=== PATIENT | female | born 1945 | race Caucasian/White ===

== ENCOUNTER 2019-02-08 19:55 | Emergency (ER) | payer MEDICARE, OTHER, SELFPAY ==
[2019-02-08 19:58] VITALS: BP 121/72; PULSE 82; RESP 17; TEMP 36.9; O2SAT 95; BMI 26.8
--- NOTE | 2019-02-08 20:39 | ED.VIS.GEN ---
History of Present Illness Chief Complaint: General Illness Detail of Chief Complaint: Nausea and loss of appetite Informant: Patient, Family Onset: Days - Onset FridayJanuary 29. Context: Sudden Onset Timing: Continuous Quality: Loss of appetite, nausea and vomiting Location: GI Current Severity: Mild Maximum Severity: Moderate Worsened by: Worse after taking promethazine tablet Relieved by: Nothing Associated Symptoms: Dry mouth, thirst, malaise, subjective fever and not self Narrative: Patient is 74-year-old woman who presents because of illness that started FridayFebruary 03. She states she had one episode of emesis per day. She had soft mushy stool today. There is no blood or mucus in the stool. There was no blood or coffee-ground appearance to the emesis. She does complain of thirst and dry mouth. She complains of subjective fever. Denies headache, visual, ocular auditory symptoms. She denies respiratory symptoms. She denies dysuria, frequency, urgency or hematuria. [facility] and had he rapid flu test that was negative. She was discharged with promethazine tablets. She states she has not been able to take the promethazine tablets. She vomits after taking them. She denies rash. Prior similar symptoms: Yes Recent Illness/Hospitalization: Yes - Past Medical History (1) No significant past medical history Status: Acute Past Medical History - Allergies and Home Meds Allergies/Adverse Reactions: Allergies Penicillins Allergy (Verified 02/08/19 19:57) Anaphylaxis Primary Care Physician: Cuauhtemoc Viramontes MD [Primary Care Provider] - 3-5 Days Prior records reviewed: Yes Surgical History: noncontributory Lives: Spouse/ Significant Other Smoking Status: Never smoker Alcohol: Rare Drugs: None Review of Systems General: Reports: Fever, Malaise, Subjective. Denies: Chills, Sweats Eyes: Denies: Visual changes - bilaterally, Blurred Vision - bilaterally, Diplopia ENT: Denies: Bilateral ear pain, Rhinorrhea, Sore throat Cardiovascular: Denies: Chest pain, Palpitations Respiratory: Denies: Dyspnea, Cough, Dyspnea on exertion Gastrointestinal: Reports: Nausea. Denies: Abdominal pain, Vomiting, Diarrhea, Melena, Hematochezia Genitourinary: Denies: Dysuria, Hematuria, Frequency Musculoskeletal: Denies: Myalgias, Arthralgias, Neck pain, Back pain, Swelling, Extremity Pain Skin: Denies: Rash, Wounds Neurological: Reports: Weakness. Denies: Headache, Numbness Hematologic: Denies: Easy bruising, Easy bleeding Allergy: Denies: Uticaria, Swelling of the mouth Physical Exam Vital Signs/Narrative: Vital Signs Temp Pulse Resp BP Pulse Ox 02/08/19 19:58 98.5 F 82 17 121/72 H 95 Inital Vital Signs reviewed: Yes General: Well nourished, Well developed, - - Patient appears ill Eyes: Perrl. Negative for: Pale conjunctiva, Scleral icterus ENT: No rhinorrhea, TM's clear, Dry mucous membranes Neck: Supple, Nontender, No lymphadenopathy, No JVD Cardiovascular: Regular rate, Regular rhythm, No murmurs Respiratory: No distress, CTA bilaterally, Chest nontender Abdomen: Soft, Nontender, Nondistended, Normal bowel sounds, No masses Back: Nontender, Normal Inspection. Negative for: CVA tenderness Extremities: Nontender, No edema Skin: Normal color, No rash, No Trauma. Negative for: Cyanosis, Diaphoresis, Jaundice Neurological: Alert, Oriented x3, Cranial nerves II-XII grossly intact, Normal Strength, Normal Sensation Psychological: Normal affect Diagnostic/Tx/Re-eval Laboratory Results 02/08/19 02/08/19 02/08/19 21:04 21:04 21:06 WBC 12.8 H RBC 4.26 Hgb 12.8 Hct 35.5 L MCV 83.3 MCH 30.0 MCHC 36.1 H RDW Std Deviation 38.3 RDW Coeff of David 12.5 Plt Count 214 MPV 9.4 Immature Gran % (Auto) 0.700 Neut % (Auto) 84.8 H Lymph % (Auto) 4.8 L [place] % (Auto) 9.0 Eos % (Auto) 0.5 Baso % (Auto) 0.2 Absolute Neuts (auto) 10.9 H Absolute Lymphs (auto) 0.61 L Nucleated RBC % 0 Sodium 132 L Potassium 2.6 L* Chloride 93 L Carbon Dioxide 26.0 Anion Gap 13 BUN 32 H Creatinine 1.40 H Estim Creat Clear Calc 29.98 Est GFR (MDRD) Af Amer 47 L Est GFR (MDRD) Non-Af 39 L BUN/Creatinine Ratio 22.9 H Glucose 122 H Calcium 8.9 Total Bilirubin 0.70 AST 26 ALT 34 Alkaline Phosphatase 120 H Total Protein 6.6 Albumin 2.7 L Globulin 3.9 Albumin/Globulin Ratio 0.7 L Urine Color Yellow Urine Clarity Sl. Cloudy Urine pH 6.0 Ur Specific [place] 1.015 Urine Protein 100 H Urine Glucose (UA) Normal Urine Ketones 15 H Urine Occult Blood 50 H Urine Nitrite Negative Urine Bilirubin Negative Urine Urobilinogen Normal Ur Leukocyte Esterase 500 H Urine RBC 0-5 SEEN Urine WBC >100 SEEN Ur Squamous Epith Cells 0-5 SEEN Urine Bacteria 2+ Urine Mucus 0 SEEN White count is elevated with no bandemia. Urine is consistent with infection. Since she had a UTI approximately 1 month ago she is a complex UTI. Culture was sent. She received IV antibiotics. Comprehensive metabolic panel is remarkable for a potassium of 2.6. She states she has had problems with low potassium in the past. She received 40 mEq of potassium chloride solution and will receive a second dose 1 hour after first. Patient states she does feel better after the liter of saline. - Medical Decision Making With general symptoms of malaise. Since she is elderly will obtain urine to assess for UTI. CBC to assess white count and H&H. Because she has had poor p.o. intake for 5 days basic metabolic panel was obtained to assess electrolytes and renal function. She received 1 L of normal saline wide open and Zofran for her nausea. Patient tolerated p.o. challenge. Will discharge after second dose of potassium. A prescription for ciprofloxacin and potassium was given to patient. ED Disposition - Plan for ED Patient: Disposition: Home or Assisted Living Diagnosis: Complicated urinary tract infection, Sepsis, Mild dehydration, Hypokalemia Instructions: Hypokalemia, Bladder Infection (Cystitis), Female (Child) Prescriptions: Ciprofloxacin [Cipro] 500 mg PO BID #14 tab Prescription Printed Potassium Cloride Effervescent [Potassium Chl 25 Meq Eff (For Liquid)] 25 meq PO BID #30 tablet.eff Prescription Printed Referrals: Cuauhtemoc Viramontes MD [Primary Care Provider] - 3-5 Days
[2019-02-08] MEDS: 0.9% Normal Saline 1,000 ML 1000 ML IV (20:58)
[2019-02-08] MEDS: Ondansetron 4 MG/2 ML Vial IV (20:59)
[2019-02-08 21:12] LABS: Mucous, Urine 0 SEEN /hpf (<or=2+)
[2019-02-08 21:29] LABS: Absolute Lymphocyte Count 0.61 X10^3/uL (0.83-4.51); Absolute Neutrophil Count 10.9 X10^3/uL (2.0-7.7); Basophil# 0.03 X10^3/uL; Basophil% 0.2 % (0-1); Eosinophil# 0.06 X10^3/uL; Eosinophils% 0.5 % (0-5); Hematocrit 35.5 % (37-47); Hemoglobin 12.8 g/dL (12.0-15.0); Lymphocyte # 0.61 X10^3/ul (4.0); Lymphocyte % 4.8 % (19-41); Mean Corp Hgb Conc 36.1 g/dL (32-36); Mean Corpuscular Volume 83.3 fL (81-99); Mean Platelet Vol. 9.4 fl (6.2-12.0); Monocyte# 1.16 X10^3/uL; NRBC Flagged by Analyzer 0 % (0-5); Neutrophil # 10.87 X10^3/uL (2.7-7.7); Neutrophil % 84.8 % (47-70); Platelet Count 214 K/mm3 (150-450); RBC Distribution Width CV 12.5 % (11.6-14.6); RBC Distribution Width SD 38.3 fl (35.1-43.9); Red Blood Count 4.26 M/mm3 (4.2-5.4); White Blood Count 12.8 K/mm3 (4.4-11.0)
[2019-02-08 21:35] LABS: Color, Urine Yellow (Yellow); Glucose, Dipstick Normal (Normal); Ketone-Dipstick 15 mg/dl (Negative); Leukocyte Esterase-Dipstick 500 /ul (Negative); Nitrite-Dipstick Negative (Negative); Occult Blood-Urine 50 /ul (Negative); Protein-Dipstick 100 mg/dl (Negative); Specific Gravity, Urine 1.015 (1.002-1.030); Urine Bilirubin Dipstick Negative (Negative); Urine Clarity Sl. Cloudy (Clear); Urine Urobilinogen Normal (Normal)
[2019-02-08 21:50] LABS: Bacteria 2+ /hpf (None Seen); Red Blood Cells-Urine 0-5 SEEN /hpf (0-5); Squamous Epithelial Cells - UA 0-5 SEEN /hpf (5-10); White Blood Cells >100 SEEN /hpf (0-5)
[2019-02-08 22:21] VITALS: BP 123/66; PULSE 66; RESP 22; O2SAT 93
[2019-02-08 22:22] LABS: ALB/GLOB Ratio 0.7 RATIO (0.9-2.4); AST(SGOT) 26 U/L (15-37); Alanine Aminotransfer ALT/SGPT 34 U/L (13-56); Albumin, Serum 2.7 g/dL (3.2-5.0); Alkaline Phosphatase 120 U/L (45-117); Anion Gap 13 (5-15); BUN 32 mg/dL (7-18); BUN/Creat Ratio 22.9 RATIO (10-20); Calcium,Total 8.9 mg/dL (8.5-10.1); Chloride 93 mmol/L (98-107); EST Glomerular Filtration Rate 39 mL/min (>60); Est Glom Filt Rate - Afr Amer 47 mL/min (>60); Estimated Creatinine Clearance 29.98 ml/min; Globulin 3.9 g/dL (2.2-4.2); Glucose 122 mg/dL (74-106); Potassium 2.6 mmol/L (3.5-5.1); Protein, Total 6.6 g/dL (6.4-8.2); Sodium Level 132 mmol/L (136-145)
[2019-02-08] MEDS: Ciprofloxacin 400 MG/200 ML BAG 200 MG IV (22:33)
[2019-02-08 23:46] VITALS: BP 137/83; PULSE 76; RESP 17; O2SAT 97
== END 2019-02-09 00:10 | disposition home or self-care (01) ==
PROVIDERS: Emergency Provider Emergency Medicine; Family Provider Family Medicine; PCP Family Medicine
DX: N39.0 Urinary tract infection, site not specified (principal); A41.9 Sepsis, unspecified organism; E86.0 Dehydration; E87.6 Hypokalemia
CPT/HCPCS: 80053; 81001; 85025; 87077; 87086; 87088; 87186; 96361; 96365; 96375; 99284; J7050; A4216; J0744; J2405

== ENCOUNTER 2020-08-19 15:18 | Emergency (ER) | payer MEDICARE, OTHER, SELFPAY ==
[2020-08-19 15:19] VITALS: BP 163/87; PULSE 79; RESP 14; TEMP 36.4; O2SAT 99; BMI 30.2
--- NOTE | 2020-08-19 15:30 | EX.ED.DYSGE1 ---
HPI History of Present Illness Chief Complaint: Complaint Informant: patient and spouse/S.O. Narrative Narrative: 75-year-old female states that she believes she has a UTI. 4 days ago she began to feel nauseous and not herself. She states that she does not typically get urinary symptoms when she gets a UTI. So when she started to feel not herself she started taking Bactrim. This is now day 4 of Bactrim. She states that she has been trying to drink plenty of fluids but the nausea is limited solid intake. She states today she feels shaky and has dry mouth. She notes continued nausea. No fevers. 2018 she was seen in the emergency department and had urine culture that showed E. coli that was pansensitive. [facility] Medical History (Updated 08/19/20 @ 18:[address] Cesario Molina DO) History of UTI Home Medications hydrochlorothiazide 1 tab PO DAILY 02/08/19 [History Last Taken Unknown] ondansetron 4 mg PO Q6H PRN PRN #15 tab 08/19/20 [Rx Last Taken Unknown] potassium chloride 20 meq PO BID #6 tab 08/19/20 [Rx Last Taken Unknown] Allergy/AdvReac Type Severity Reaction Status Date / Time Penicillins Allergy Anaphylaxis Verified 08/19/20 15:19 Social History (Updated 08/19/20 @ 15:[address] Cesario Molina DO) Smoking Status: Never smoker substance use type: does not use ROS ROS ED Constitutional Constitutional ED: Reports other Details: Patient feels shaky and weak ; Denies chills or weight loss Eyes Eyes: Denies change in vision or diplopia ENT ENT ED: Denies ear pain, rhinorrhea or sore throat Cardiovascular Cardiovascular: Denies chest pain, orthopnea, palpitations or racing heartbeat Respiratory/Chest Respiratory/Chest: Denies cough, dyspnea or orthopnea Gastrointestinal Gastrointestinal: Reports nausea; Denies abdominal pain, diarrhea or vomiting Genitourinary Genitourinary ED: Denies dysuria, hematuria or urinary frequency Musculoskeletal Musculoskeletal: Denies arthralgias or myalgias Integumentary Denies abscess or rash Neurologic Neurologic: Denies headache(s) or weakness Psychiatric Psychiatric: Denies anxiety, depression, suicidal ideation or suicidal thoughts Endocrine Endocrinology: Denies polydipsia, polyphagia or polyuria Allergic/Immunologic Allergic/Immunologic ED: Denies mouth swelling, tongue swelling or urticaria EXAM Physical Exam Const Vital Signs: 08/19/20 15:19 08/19/20 15:42 08/19/20 16:07 Temperature 97.5 F L Temperature Source Temporal Pulse Rate 79 Pulse Rate [Lying] 66 Pulse Rate [Sitting] 64 Pulse Rate [Standing] 70 Respiratory Rate 14 Respiratory Effort Normal Non-Labored Respiratory Pattern Normal Blood Pressure 163/87 H Blood Pressure [Lying] 144/72 H Blood Pressure [Sitting] 145/79 H Blood Pressure [Standing] 143/75 H Blood Pressure Mean 112 Blood Pressure Mean [Lying] 96 Blood Pressure Mean [Sitting] 101 Blood Pressure Mean [Standing] 97 Pulse Ox 99 Oxygen Delivery Method Room Air 08/19/20 17:46 Temperature Temperature Source Pulse Rate 62 Pulse Rate [Lying] Pulse Rate [Sitting] Pulse Rate [Standing] Respiratory Rate 16 Respiratory Effort Respiratory Pattern Blood Pressure 134/73 H Blood Pressure [Lying] Blood Pressure [Sitting] Blood Pressure [Standing] Blood Pressure Mean 93 Blood Pressure Mean [Lying] Blood Pressure Mean [Sitting] Blood Pressure Mean [Standing] Pulse Ox 95 Oxygen Delivery Method Room Air Positive well nourished and well developed General Appearance ED: well developed HEENT Reports normocephalic, head/scalp atraumatic and moist mucous membranes Eyes PERRL and EOMs intact bilaterally Neck no lymphadenopathy, supple and no JVD Resp normal respiratory effort and clear to auscultation bilaterally Cardio regular rate, regular rhythm and no murmurs GI normal to inspection, nondistended, normoactive bowel sounds and non-tender Palpation: soft Back/Spine no CVA tenderness and normal ROM Extremity normal to inspection General Extremety ED: Negative for edema General Extremity: Negative for edema Neuro oriented x3 and CN's II-XII intact bilaterally Neuro Narrative: She appears to have an intention tremor Sensorium / Orientation: alert Motor Exam: strength 5/5 throughout Psych mental status grossly normal Mood & Affect: Negative for depressed or tearful Skin no rashes or lesions noted and no wounds MDM MDM MDM Narrative Medical decision making narrative: CBC is normal. CMP shows a potassium of 2.9. Lactic acid at 2. Urinalysis is negative for nitrates 0 red blood cells 0-5 white blood cells and rare bacteria. It would appear that the antibiotic is working for her. I suspect a lot of her symptoms are due to the hypokalemia. Her EKG does not show any significant change from prior. We will replace the potassium over the next couple days. I would have her continue her antibiotics for 3 more days. Return if worsening or concerns at the time of discharge the patient no longer has her tremor. She is feeling much better. Lab Data Attestation: I reviewed the patient's lab results. Labs: Laboratory Results - last 24 hr 08/19/20 08/19/20 08/19/20 15:44 15:44 15:44 WBC 7.8 RBC 5.05 Hgb 15.0 Hct 44.4 MCV 87.9 MCH 29.7 MCHC 33.8 RDW Std Deviation 39.8 RDW Coeff of David 12.4 Plt Count 267 MPV 8.5 Immature Gran % (Auto) 0.400 Neut % (Auto) 75.6 H Lymph % (Auto) 15.1 L [place] % (Auto) 8.3 Eos % (Auto) 0.1 Baso % (Auto) 0.5 Absolute Neuts (auto) 5.9 Absolute Lymphs (auto) 1.18 Nucleated RBC % 0 Sodium 134 L Potassium 2.9 L Chloride 97 L Carbon Dioxide 28.0 Anion Gap 9 BUN 14 Creatinine 1.02 Estim Creat Clear Calc 38.81 Est GFR (MDRD) Af Amer 68 Est GFR (MDRD) Non-Af 56 L BUN/Creatinine Ratio 13.7 Glucose 110 H Lactic Acid 2.0 Calcium 9.8 Total Bilirubin 0.70 AST 15 ALT 19 Alkaline Phosphatase 106 Total Protein 7.3 Albumin 3.9 Globulin 3.4 Albumin/Globulin Ratio 1.1 Lipase 94 Urine Color Urine Clarity Urine pH Ur Specific [place] Urine Protein Urine Glucose (UA) Urine Ketones Urine Occult Blood Urine Nitrite Urine Bilirubin Urine Urobilinogen Ur Leukocyte Esterase Urine RBC Urine WBC Ur Squamous Epith Cells Urine Bacteria Urine Mucus 08/19/20 16:00 WBC RBC Hgb Hct MCV MCH MCHC RDW Std Deviation RDW Coeff of David Plt Count MPV Immature Gran % (Auto) Neut % (Auto) Lymph % (Auto) [place] % (Auto) Eos % (Auto) Baso % (Auto) Absolute Neuts (auto) Absolute Lymphs (auto) Nucleated RBC % Sodium Potassium Chloride Carbon Dioxide Anion Gap BUN Creatinine Estim Creat Clear Calc Est GFR (MDRD) Af Amer Est GFR (MDRD) Non-Af BUN/Creatinine Ratio Glucose Lactic Acid Calcium Total Bilirubin AST ALT Alkaline Phosphatase Total Protein Albumin Globulin Albumin/Globulin Ratio Lipase Urine Color Yellow Urine Clarity Clear Urine pH 7.0 Ur Specific [place] 1.010 Urine Protein Negative Urine Glucose (UA) Normal Urine Ketones Negative Urine Occult Blood Negative Urine Nitrite Negative Urine Bilirubin Negative Urine Urobilinogen Normal Ur Leukocyte Esterase 25 H Urine RBC 0 SEEN Urine WBC 0-5 SEEN Ur Squamous Epith Cells 0-5 SEEN Urine Bacteria RARE Urine Mucus 0 SEEN EKG Initial EKG: Attestation: I personally reviewed and interpreted this EKG as follows: Comments: EKG demonstrates a normal sinus rhythm with a rate of 65 bpm. Prior EKG tracings: available for review Prior: Unchanged Discharge Plan Triage Chief Complaint: Complaint ED Provider: Cesario Molina Dx/Rx/DC Orders Clinical Impression: Acute hypokalemia, Nausea Instructions: ED Hypokalemia Prescriptions: New potassium chloride 20 mEq tablet extended release 20 meq PO BID Qty: 6 RF: 0 ondansetron [ondansetron] 4 MG tablet 4 mg PO Q6H PRN PRN (Reason: Nausea) Qty: 15 RF: 0 No Action hydrochlorothiazide 25 MG tablet 1 tab PO DAILY RF: 0 Primary Care Provider: Cuauhtemoc Viramontes Referrals: Cuauhtemoc Viramontes MD [Primary Care Provider] - As Needed Disposition Disposition: Home, Self Care
[2020-08-19] MEDS: 0.9% Normal Saline 1,000 ML 1000 ML IV (15:53)
[2020-08-19] MEDS: Ondansetron 4 MG/2 ML Vial IV (15:53)
[2020-08-19 16:00] LABS: Absolute Lymphocyte Count 1.18 X10^3/uL (0.83-4.51); Absolute Neutrophil Count 5.9 X10^3/uL (2.0-7.7); Basophil# 0.04 X10^3/uL; Basophil% 0.5 % (0-1); Eosinophil# 0.01 X10^3/uL; Eosinophils% 0.1 % (0-5); Hematocrit 44.4 % (37-47); Lymphocyte # 1.18 X10^3/ul (0.83-4.51); Lymphocyte % 15.1 % (19-41); Mean Corp Hgb Conc 33.8 g/dL (32-36); Mean Corpuscular Hgb 29.7 pg (27.0-32.0); Mean Corpuscular Volume 87.9 fL (81-99); Mean Platelet Vol. 8.5 fl (6.2-12.0); Monocyte# 0.65 X10^3/uL; Monocyte% 8.3 % (0-10); NRBC Flagged by Analyzer 0 % (0-5); Neutrophil # 5.89 X10^3/uL (2.7-7.7); Neutrophil % 75.6 % (47-70); Platelet Count 267 K/mm3 (150-450); RBC Distribution Width CV 12.4 % (11.6-14.6); RBC Distribution Width SD 39.8 fl (35.1-43.9); Red Blood Count 5.05 M/mm3 (4.2-5.4); White Blood Count 7.8 K/mm3 (4.4-11.0)
[2020-08-19 16:05] LABS: Mucous, Urine 0 SEEN /hpf (<or=2+); Red Blood Cells-Urine 0 SEEN /hpf (0-5)
[2020-08-19 16:07] VITALS: BP 143/75; BP 144/72; BP 145/79; PULSE 64; PULSE 66; PULSE 70
[2020-08-19 16:07] LABS: Color, Urine Yellow (Yellow); Glucose, Dipstick Normal (Normal); Ketone-Dipstick Negative (Negative); Leukocyte Esterase-Dipstick 25 /ul (Negative); Nitrite-Dipstick Negative (Negative); Occult Blood-Urine Negative /ul (Negative); Protein-Dipstick Negative (Negative); Urine Bilirubin Dipstick Negative (Negative); Urine Clarity Clear (Clear); Urine Urobilinogen Normal (Normal)
[2020-08-19 16:13] LABS: ALB/GLOB Ratio 1.1 RATIO (0.9-2.4); AST(SGOT) 15 U/L (15-37); Alanine Aminotransfer ALT/SGPT 19 U/L (13-56); Albumin, Serum 3.9 g/dL (3.2-5.0); Alkaline Phosphatase 106 U/L (45-117); Anion Gap 9 (5-15); BUN 14 mg/dL (7-18); BUN/Creat Ratio 13.7 RATIO (10-20); Calcium,Total 9.8 mg/dL (8.5-10.1); Chloride 97 mmol/L (98-107); Creatinine, Serum 1.02 mg/dL (0.55-1.02); EST Glomerular Filtration Rate 56 mL/min (>60); Est Glom Filt Rate - Afr Amer 68 mL/min (>60); Estimated Creatinine Clearance 38.81 ml/min; Globulin 3.4 g/dL (2.2-4.2); Glucose 110 mg/dL (74-106); Lipase 94 U/L (73-393); Potassium 2.9 mmol/L (3.5-5.1); Protein, Total 7.3 g/dL (6.4-8.2); Sodium Level 134 mmol/L (136-145)
[2020-08-19 16:21] LABS: Squamous Epithelial Cells - UA 0-5 SEEN /hpf (5-10); White Blood Cells 0-5 SEEN /hpf (0-5)
[2020-08-19 16:22] LABS: Bacteria RARE /hpf (None Seen)
[2020-08-19] MEDS: Potassium Chloride Oral Tablet 20 MEQ 40 MEQ PO (16:47)
--- NOTE | 2020-08-19 17:42 | EKG12_ITS ---
Test Reason : Blood Pressure : / mmHG Vent. Rate : 065 BPM Atrial Rate : 065 BPM P-R Int : 182 ms QRS Dur : 088 ms QT Int : 434 ms P-R-T Axes : 031 -22 -41 degrees QTc Int : 451 ms Normal sinus rhythm ST & T wave abnormality, consider anterolateral ischemia Abnormal ECG Confirmed by ROGER SIMMONS, EUSEBIA ([id number]), associate entertainment editor JON RON ([id number]) on 08/23/2020 9:12:44 AM Referred By: CIARA Confirmed By:EUSEBIA DURAN MD
[2020-08-19 17:46] VITALS: BP 134/73; PULSE 62; RESP 16; O2SAT 95
[2020-08-19 19:49] LABS: Reflex Lactate? Y
== END 2020-08-19 18:17 | disposition home or self-care (01) ==
PROVIDERS: Emergency Provider Emergency Medicine; PCP Family Medicine
DX: E87.6 Hypokalemia (principal); R11.0 Nausea; Z87.440 Personal history of urinary (tract) infections; Z79.899 Other long term (current) drug therapy
CPT/HCPCS: 80053; 81001; 83605; 83690; 85025; 93005; 96374; 99284; J7030; A4216; J2405

== ENCOUNTER 2020-08-29 23:14 | Emergency (ER) | payer MEDICARE, OTHER, SELFPAY ==
[2020-08-29 23:18] VITALS: BP 147/49; PULSE 81; RESP 16; TEMP 36.4; O2SAT 99; BMI 31.1
[2020-08-29 23:20] VITALS: BP 147/49; PULSE 83; RESP 15; O2SAT 99
--- NOTE | 2020-08-29 23:38 | EKG12_ITS ---
Test Reason : SYNCOPE Blood Pressure : / mmHG Vent. Rate : 077 BPM Atrial Rate : 077 BPM P-R Int : 194 ms QRS Dur : 080 ms QT Int : 388 ms P-R-T Axes : 039 -21 032 degrees QTc Int : 439 ms Normal sinus rhythm Leftward axis Incomplete right bundle branch block Confirmed by ROGER SIMMONS, EUSEBIA ([id number]), graphic editor JON RON ([id number]) on 09/01/2020 10:01:56 AM Referred By: TL Confirmed By:EUSEBIA DURAN MD
--- NOTE | 2020-08-29 23:40 | EX.ED.DYSGE1 ---
HPI History of Present Illness Chief Complaint: Syncope Informant: patient and spouse/S.O. Narrative Narrative: Patient presents by private vehicle with significant other evaluation of syncopal episode occurring prior to arrival. Patient recalls playing on the computer felt like she is can have a bowel movement, she walked out to the living room, she does not recall the event since then. states she walked out, she stood next to the chair, she fell forward onto a carpet rug. He reports he turned her over, she looked dazed. She came around. She states after that she did go to the bathroom and have 3 bowel movements the last one was slightly loose. It was nonbloody. Denies any recent cough chest pains shortness of breath. States she was seen here 10 days on Friday for concerns of shakiness and not feeling right. She is found to have low potassium. She is on replacement medications. However she states she took the 1 dose in the ED, she was concerned with mixing with her triamterene for which she takes for peripheral edema. She denies hypertension history. She did follow-up with her PCP yesterday and was cleared to take those medications. Denies headache neck pain back pain. Reviewing her records from 10 days ago she is concerned for urinary tract symptoms she had Bactrim for 4 days she was continued for 3 more days. PFSH PFSH Medical History History of UTI Non-smoker Home Medications ondansetron 4 mg PO Q6H PRN PRN #15 tab 08/19/20 [Rx Last Taken Unknown] potassium chloride 20 meq PO BID #6 tab 08/19/20 [Rx Last Taken Unknown] triamterene-hydrochlorothiazid 1 cap PO DAILY 08/29/20 [History Last Taken Unknown] Allergy/AdvReac Type Severity Reaction Status Date / Time Penicillins Allergy Anaphylaxis Verified 08/29/20 23:17 Social History Smoking Status: Never smoker substance use type: does not use ROS ROS ED Constitutional Constitutional ED: Denies chills, fever(s) or sweats Eyes Eyes: Denies change in vision ENT ENT ED: Denies dysphagia or sore throat Cardiovascular Cardiovascular: Denies chest pain, leg edema, palpitations or racing heartbeat Respiratory/Chest Respiratory/Chest: Denies cough, dyspnea or dyspnea on exertion Gastrointestinal Gastrointestinal: Denies abdominal pain, diarrhea, nausea or vomiting Genitourinary Genitourinary ED: Denies dysuria, hematuria or urinary frequency Musculoskeletal Musculoskeletal: Denies back pain, extremity pain or neck pain Integumentary Denies rash or wounds Neurologic Neurologic: Denies headache(s), paresthesias or weakness EXAM Physical Exam Const Vital Signs: 08/29/20 23:18 08/29/20 23:20 08/30/20 00:24 Temperature 97.6 F L Temperature Source Temporal Pulse Rate 81 83 76 Respiratory Rate 16 15 18 Respiratory Effort Normal Respiratory Pattern Normal Blood Pressure 147/49 H 147/49 H 133/65 H Blood Pressure Mean 81 81 87 Pulse Ox 99 99 97 Oxygen Delivery Method Room Air Room Air Room Air Positive well nourished and well developed Constitutional Narrative: GCS 15. General Appearance ED: well developed and NAD HEENT Reports TM's clear and moist mucous membranes HEENT Narrative: No hemotympanum. normocephalic and atraumatic Tympanic Membrane ED: Yes TM's clear Eyes PERRL, EOMs intact bilaterally and conjunctivae normal General Eye ED: Yes normal appearance of both eyes Neck no lymphadenopathy and supple General: Negative for tenderness Chest Wall Chest: Negative for tenderness Resp normal respiratory effort and normal air movement Effort and Inspection: symmetric chest movement; Negative for respiratory distress Cardio regular rate, regular rhythm and no murmurs Peripheral Pulses: pulses 2+ throughout GI normal to inspection, nondistended, normoactive bowel sounds and non-tender Palpation: Negative for guarding or rebound tenderness present Back/Spine no CVA tenderness and no thoracic nor lumbar tenderness Extremity normal to inspection Extremity Narrative: Mild edema bilateral lower ankles. Nontender. Active full range of motion x4 extremities. General Extremety ED: Yes edema; Negative for tenderness General Extremity: edema Neuro oriented x3 and no sensory deficits noted Sensorium / Orientation: awake and alert Skin no rashes or lesions noted and no wounds MDM MDM MDM Narrative Medical decision making narrative: Patient presented with a syncopal episode, there is no focal deficits. No injuries from the fall. EKG did not note any acute findings. With her known hypokalemia history I did recheck labs including magnesium. Magnesium normal potassium 3.1. This was orally replaced. I checked a urine due to her recent UTI findings. This did not note any significant findings. Reevaluation she is feeling better she is ambulated to the restroom with no return of symptoms. Discussed patient did have slight abdominal cramping with nausea before symptoms possibly could been a vasovagal episode causing her syncope. She is back to normal currently. With her baseline good health, I do feel she is safe to be discharged home and follow-up with her PCP. They agree with this. However discussed with patient and significant other symptoms recurs to return the ED for reevaluation. In addition, she restarted her potassium replacement supplements yesterday after discussing with her PCP. She will continue this. They understand and agree with plan. All questions were answered. Lab Data Labs: Laboratory Results - last 24 hr 08/29/20 08/29/20 08/30/20 23:55 23:55 00:00 WBC 13.3 H RBC 4.53 Hgb 13.8 Hct 41.7 MCV 92.1 MCH 30.5 MCHC 33.1 RDW Std Deviation 42.5 RDW Coeff of David 12.6 Plt Count 270 MPV 8.3 Immature Gran % (Auto) 0.700 Neut % (Auto) 85.3 H Lymph % (Auto) 8.7 L [place] % (Auto) 4.8 Eos % (Auto) 0.3 Baso % (Auto) 0.2 Absolute Neuts (auto) 11.3 H Absolute Lymphs (auto) 1.16 Nucleated RBC % 0 Sodium 139 Potassium 3.1 L Chloride 103 Carbon Dioxide 27.0 Anion Gap 9 BUN 22 H Creatinine 0.98 Estim Creat Clear Calc 40.40 Est GFR (MDRD) Af Amer 71 Est GFR (MDRD) Non-Af 59 L BUN/Creatinine Ratio 22.5 H Glucose 112 H Calcium 9.1 Magnesium 2.2 Urine Color Yellow Urine Clarity Clear Urine pH 7.0 Ur Specific [place] 1.010 Urine Protein Negative Urine Glucose (UA) Normal Urine Ketones Negative Urine Occult Blood Negative Urine Nitrite Negative Urine Bilirubin Negative Urine Urobilinogen Normal Ur Leukocyte Esterase 25 H Urine RBC 0 SEEN Urine WBC 0-5 SEEN Ur Squamous Epith Cells 0-5 SEEN Urine Bacteria 0 SEEN Urine Mucus 0 SEEN EKG Initial EKG: Attestation: I personally reviewed and interpreted this EKG as follows: Comments: Sinus rate of 77, no ST changes. T wave inversion in anterior leads. Discharge Plan Triage Chief Complaint: Syncope ED Provider: Le,Ari Dx/Rx/DC Orders Clinical Impression: Syncope, Hypokalemia Instructions: ED Hypokalemia, ED Fainting, Vagal Reaction Prescriptions: No Action potassium chloride 20 mEq tablet extended release 20 meq PO BID Qty: 6 RF: 0 ondansetron [ondansetron] 4 MG tablet 4 mg PO Q6H PRN PRN (Reason: Nausea) Qty: 15 RF: 0 triamterene-hydrochlorothiazid 37.5-25 mg Capsule 1 cap PO DAILY RF: 0 Primary Care Provider: Cuauhtemoc Viramontes Referrals: Cuauhtemoc Viramontes MD [Primary Care Provider] - 3-5 Days Activity Restrictions/Additional Instructions: Continue and finish your potassium replacement medications. Follow-up with your doctor. Return if any worsening symptoms or if symptoms recur. Disposition Disposition: Home, Self Care
[2020-08-30] LABS: Absolute Lymphocyte Count 1.16 X10^3/uL (0.83-4.51); Absolute Neutrophil Count 11.3 X10^3/uL (2.0-7.7); Basophil# 0.02 X10^3/uL; Basophil% 0.2 % (0-1); Eosinophil# 0.04 X10^3/uL; Eosinophils% 0.3 % (0-5); Hematocrit 41.7 % (37-47); Hemoglobin 13.8 g/dL (12.0-15.0); Lymphocyte # 1.16 X10^3/ul (0.83-4.51); Lymphocyte % 8.7 % (19-41); Mean Corp Hgb Conc 33.1 g/dL (32-36); Mean Corpuscular Hgb 30.5 pg (27.0-32.0); Mean Corpuscular Volume 92.1 fL (81-99); Mean Platelet Vol. 8.3 fl (6.2-12.0); Monocyte# 0.63 X10^3/uL; Monocyte% 4.8 % (0-10); NRBC Flagged by Analyzer 0 % (0-5); Neutrophil # 11.32 X10^3/uL (2.7-7.7); Neutrophil % 85.3 % (47-70); Platelet Count 270 K/mm3 (150-450); RBC Distribution Width CV 12.6 % (11.6-14.6); RBC Distribution Width SD 42.5 fl (35.1-43.9); Red Blood Count 4.53 M/mm3 (4.2-5.4); White Blood Count 13.3 K/mm3 (4.4-11.0)
[2020-08-30 00:20] LABS: Anion Gap 9 (5-15); BUN 22 mg/dL (7-18); BUN/Creat Ratio 22.5 RATIO (10-20); Calcium,Total 9.1 mg/dL (8.5-10.1); Chloride 103 mmol/L (98-107); Creatinine, Serum 0.98 mg/dL (0.55-1.02); EST Glomerular Filtration Rate 59 mL/min (>60); Est Glom Filt Rate - Afr Amer 71 mL/min (>60); Glucose 112 mg/dL (74-106); Magnesium 2.2 mg/dL (1.6-2.6); Potassium 3.1 mmol/L (3.5-5.1); Sodium Level 139 mmol/L (136-145)
[2020-08-30 00:24] VITALS: BP 133/65; PULSE 76; RESP 18; O2SAT 97
[2020-08-30 00:26] LABS: Bacteria 0 SEEN /hpf (None Seen); Color, Urine Yellow (Yellow); Glucose, Dipstick Normal (Normal); Ketone-Dipstick Negative (Negative); Leukocyte Esterase-Dipstick 25 /ul (Negative); Mucous, Urine 0 SEEN /hpf (<or=2+); Nitrite-Dipstick Negative (Negative); Occult Blood-Urine Negative /ul (Negative); Protein-Dipstick Negative (Negative); Red Blood Cells-Urine 0 SEEN /hpf (0-5); Urine Bilirubin Dipstick Negative (Negative); Urine Clarity Clear (Clear); Urine Urobilinogen Normal (Normal)
[2020-08-30 00:32] LABS: Squamous Epithelial Cells - UA 0-5 SEEN /hpf (5-10); White Blood Cells 0-5 SEEN /hpf (0-5)
[2020-08-30] MEDS: Potassium Chloride Oral Tablet 20 MEQ 40 MEQ PO (01:16)
[2020-08-30 01:40] VITALS: BP 124/74; PULSE 81; RESP 15; O2SAT 97
== END 2020-08-30 01:41 | disposition home or self-care (01) ==
PROVIDERS: Emergency Provider Emergency Medicine; PCP Family Medicine
DX: R55 Syncope and collapse (principal); E87.6 Hypokalemia; Z79.899 Other long term (current) drug therapy; Z87.440 Personal history of urinary (tract) infections
CPT/HCPCS: 80048; 81001; 83735; 85025; 93005; 99285; A4216

== ENCOUNTER → 2020-10-25 14:49 | Outpatient (CLI) | payer MEDICARE, OTHER, SELFPAY ==
--- NOTE | 2020-10-25 14:53 | CT_ITS ---
STUDY: CT ABDOMEN AND PELVIS WITH CONTRAST REASON FOR EXAM: Female, 75 years old. Epigastric pain RADIATION DOSAGE (If Supplied By Facility): CTDIvol = ( 9.40 ) mGy, DLP = ( 458.99 ) mGycm TECHNIQUE: Transaxial images were obtained from the dome of the diaphragm to the symphysis pubis with oral contrast. 100 ml of ISOVUE-300 contrast was administered. Sagittal and coronal images were reconstructed. Individualized dose optimization techniques were used for this CT. COMPARISON: None. FINDINGS: The visualized lung bases are clear. The visualized portions of the heart and pericardium are within normal limits. There are no calcified gallstones present. The liver is within normal limits. There are no suspicious hepatic lesions. The spleen is normal in size. The pancreas is within normal limits. The adrenal glands are within normal limits. There are no renal or ureteral stones. There is no hydronephrosis. There are no focal renal lesions. There is a small hiatal hernia. There is no bowel obstruction or inflammation. The appendix is visualized and appears normal. The aorta is normal in caliber. There is no abdominal or pelvic free air, free fluid, fluid collection or lymphadenopathy. There are no destructive osseous lesions. There are degenerative changes noted in the spine. CT/Abdomen/Pelvis WITH Contrast IMPRESSION: No acute abdominal or pelvic pathology. Small hiatal hernia. Electronically Signed: Frank Martinez MD at 10:31 EDT Tel , Service support ,
== END ==
PROVIDERS: PCP Family Medicine; Referring Provider Family Medicine; Visit Provider Family Medicine
DX: R10.13 Epigastric pain (principal)
CPT/HCPCS: 74177; Q9967

== ENCOUNTER 2020-11-28 13:01 | Day surgery (SDC) | payer MEDICARE, OTHER, SELFPAY ==
[2020-11-28 13:28] VITALS: BP 162/80; PULSE 82; RESP 16; TEMP 36.8; O2SAT 97; BMI 29.2
[2020-11-28] MEDS: Lactated Ringers 1,000 ML 100 ML IV (13:34)
--- NOTE | 2020-11-28 14:30 | EGD_PTH ---
PATIENT: NAVDEEP WU LOC: EN U#:[id number] AGE/SX: 75/F ROOM: RE11/28/[address]: Dr. Girma Ulrich DO : 1945 BED: DIS: 11/28/2020 SPEC #: [id number] RECD: 11/28/20 16:37 STATUS: WILL REEdouard #: [id number] SHIVAM: 11/28/20 14:[address]: Girma Ulrich DEPT: SURGICAL PATHOLOGY RECD BY: Rosemarie Turner ENTERED: 11/29/20 11:07 SP TYPE: EGD BIOPSY OT DR: Dr. Cuauhtemoc Viramontes MD Tissues: A - Ileum, NOS B - Gastric mucous membrane C - Esophagus, NOS Procedures: Special Stain Group II Surgery Specimen Level IV Alcian Blue/PAS (control) HEADER OPER[place] [place] DIAGNOSIS: Hiatal hernia, nausea TISSUE SUBMITTED: A ? Biopsy of terminal ileum, B ? Antrum biopsy for H. pylori and path, C ? Distal esophagus MICROSCOPIC DIAGNOSIS A. Terminal ileum, biopsy: No pathologic change. B. Gastric antrum, biopsy: Minimal chronic inflammation. See comment. C. Distal esophagus, biopsy: Gastroesophageal junctional mucosa with mild chronic inflammation. No evidence of goblet cell metaplasia. See comment. AM:suze 11/30/2020 COMMENT B. The results of immunohistochemistry for Helicobacter pylori will be reported separately ([id number]). C. Alcian blue/PAS stain with matched control supports the above diagnosis. MICROSCOPIC DESCRIPTION Slides are reviewed. GROSS DESCRIPTION A - Received in fixative is one container labeled with the patient's name and designated terminal ileum biopsy. The specimen consists of multiple irregular fragments of light amaral soft tissue that in aggregate measure 1 x 0.6 x 0.1 cm. The specimen is totally submitted in one cassette. B - Received in fixative is one container labeled with the patient's name and designated gastric antrum biopsy. The specimen consists of multiple irregular fragments of light amaral soft tissue that in aggregate measure 1.3 x 0.6 x 0.1 cm. The specimen is totally submitted in one cassette. C - Received in fixative is one container labeled with the patient's name and designated esophagus biopsy. The specimen consists of multiple irregular fragments of light amaral soft tissue that in aggregate measure 0.6 x 0.6 x 0.1 cm. The specimen is totally submitted in one cassette. / AM:suze 11/29/20 TC:3 CPT: 42327 x3, 37238
--- NOTE | 2020-11-28 14:30 | IMM_PTH ---
PATIENT: NAVDEEP WU LOC: EN U#:[id number] AGE/SX: 75/F ROOM: RE11/28/[address]: Dr. Girma Ulrich DO : 1945 BED: DIS: 11/28/2020 SPEC #: [id number] RECD: 11/29/20 12:58 STATUS: WILL REQ #: [id number] SHIVAM: 11/28/20 14:[address]: Girma Ulrich DEPT: IMMUNOHISTOCHEMISTRY RECD BY: Jaylyn Treviño ENTERED: 11/29/20 12:58 SP TYPE: IMMUNO OTHR DR: Dr. Cuauhtemoc Viramontes MD Tissues: B - Stomach, NOS Procedures: H Pylori (initial) PHYSICIAN & INSTITUTION [place] [phone] SPECIMEN INFORMATION: Tissue Source: B ? Antrum biopsy Clinical Info: Hiatal hernia, nausea Specimen Number: [id number] CPT code: 96780 METHODOLOGY: Deparaffinized sections of prefer/formalin-fixed tissue or PAP/DQ stained slides are incubated with monoclonal/polyclonal antibodies/oligonucleotide probes. Localization is made via biotin free immunoperoxidase method. Appropriate controls are performed and reacted as expected. Results on target cell population are indicated in the following table: RESULTS: ANTIBODY / CLONE RESULT Block B H Pylori (polyclonal) negative These tests were developed and their performance characteristics determined by [facility]. They may not have been cleared or approved by the U.S. Food and Drug Administration. The FDA has determined that such clearance or approval is not necessary. INTERPRETATION: B. Antrum biopsy: Negative for Helicobacter pylori organisms. AM:suze 11/30/2020
--- NOTE | 2020-11-28 14:48 | PCM.HP.BLA ---
History and Physical Date of Admission: 11/28/20 HPI Details: NAVDEEP WU, is a 75 F who presents to the office today for evaluation of abdominal pain associated with nausea and vomiting. She says this started about a year ago. It is gotten better after only 5 days of nausea vomiting. However recently her abdominal pain came back and has been getting increasingly worse. She was diagnosed with a hiatal hernia. She has not had any other abdominal surgeries. She denies any chest pain or shortness of breath. She really does not take much medicine on a daily basis except for famotidine. She had taken Nexium for 6 weeks and it caused increasing abdominal pain. She does not struggle with constipation or diarrhea. January of 2019 she experienced a lot of nausea and emesis was seen in ED and ever since then she has had off and on issues with nausea which she thinks may be related to anxiety because it happens a lot around holiday's. In the last six weeks she has been having increased nausea/bloating and has been by PCP who prescribed Nexium 40mg QD and this did not help and increased pain and caused nausea. Then tried Pepcid which has been very helpful. ROS ENT ENT: Positive for hearing loss Gastro GI: Positive for bloating Musc Musculoskeletal: Positive for joint pain and Arthritis Exam Const General: cooperative and comfortable Nutritional Appearance: average body habitus and well nourished [facility] Head: normal to inspection Ears: hearing grossly normal bilaterally Nose: external nose normal Face and sinus: normal facial exam Mouth: oral mucosae normal Throat: posterior oropharynx normal Eyes General: appearance normal, both eyes and all related structures Neck Neck: normal visual inspection Chest Chest palpation & inspection: normal inspection of the chest and normal palpation of entire chest wall Resp Effort & Inspection: normal respiratory effort Auscultation: Bilateral: Clear to Auscultation Cardio Palpation: normal PMI Rate: regular rate Rhythm: regular rhythm GI Inspection: normal to inspection Auscultation: normal bowel sounds Percussion: normal to percussion Palpation: no hepatosplenomegaly Skin General: no rashes or lesions noted Neuro General: patient alert Extrem General: normal to inspection Psych Affect: normal affect Quality Reporting Tobacco Screening ([facility] 138) Smoking Status: Never smoker Assessment and Plan Assessment and Plan (1) Hiatal hernia: Status: Acute Plan - Dr. Rayo Friend, DO: She has a nice size sliding hiatal hernia that was seen on CT imaging. I do not think she needs to do anything surgically with his hiatal hernia. However we will have to assess during upper endoscopy, the length and possible likelihood of worsening herniation. (2) Nausea: Status: Acute Plan - Dr. Rayo Friend, DO: I think her nausea is multifactorial. Told her that the reason she not respond to the Nexium was that the possibility that is not a acid issue it is a base issue. May be that if it is bile reflux, then the Nexium will work and famotidine and H2 receptor pennie worked better. Also due for diagnosis would be H. pylori, gastritis, duodenitis or atypical gastroesophageal reflux disease.
--- NOTE | 2020-11-28 16:04 | OP.EGD_ITS ---
Patient Name: Alma Delia Arrieta Procedure Date: 11/28/2020 3:41 PM Date of : 1945 Age: 75 Procedure: Upper GI endoscopy Indications: Epigastric abdominal pain Providers: Girma Ulrich DO Referring MD: Girma Ulrich DO Medicines: Propofol per Anesthesia Patient Profile: This is a 75 year old female. Refer to note in patient chart for documentation of history and physical. Patient has symptoms. The symptoms first began September. Complications: No immediate complications. Procedure: Pre-Anesthesia Assessment: - Prior to the procedure, a History and Physical was performed, and patient medications and allergies were reviewed. The patient is competent. The risks and benefits of the procedure and the sedation options and risks were discussed with the patient. All questions were answered and informed consent was obtained. Patient identification and proposed procedure were verified by the physician in the pre-procedure area. Mental Status Examination: alert and oriented. Airway Examination: normal oropharyngeal airway and neck mobility. Respiratory Examination: clear to auscultation. CV Examination: normal. Prophylactic Antibiotics: The patient does not require prophylactic antibiotics. Prior Anticoagulants: The patient has taken no previous anticoagulant or antiplatelet agents. ASA Grade Assessment: II - A patient with mild systemic disease. After reviewing the risks and benefits, the patient was deemed in satisfactory condition to undergo the procedure. The anesthesia plan was to use moderate sedation / analgesia (conscious sedation). Immediately prior to administration of medications, the patient was re-assessed for adequacy to receive sedatives. The heart rate, respiratory rate, oxygen saturations, blood pressure, adequacy of pulmonary ventilation, and response to care were monitored throughout the procedure. The physical status of the patient was re-assessed after the procedure. After obtaining informed consent, the endoscope was passed under direct vision. Throughout the procedure, the patient's blood pressure, pulse, and oxygen saturations were monitored continuously. The Endoscope was introduced through the mouth, and advanced to the second part of duodenum. The upper GI endoscopy was accomplished without difficulty. The patient tolerated the procedure well. Moderate Sedation: Moderate (conscious) sedation was administered by the endoscopy nurse and supervised by the endoscopist. The patient's oxygen saturation, heart rate, blood pressure and response to care were monitored. Total physician intraservice time was 15 minutes. Scope In: 3:50:41 PM Scope Out: 3:58:28 PM Total Procedure Duration Time 0 hours 7 minutes 47 seconds Findings: A mild Schatzki ring was found in the lower third of the esophagus. LA Grade A (one or more mucosal breaks less than 5 mm, not extending between tops of 2 mucosal folds) esophagitis with no bleeding was found 34 to 35 cm from the incisors. Biopsies were taken with a cold forceps for histology. Verification of patient identification for the specimen was done. Estimated blood loss was minimal. A medium-sized hiatal hernia was present. Patchy mild inflammation characterized by congestion (edema) and erythema was found in the stomach. Biopsies were taken with a cold forceps for histology. Verification of patient identification for the specimen was done. Estimated blood loss was minimal. Diffuse moderately erythematous mucosa without active bleeding and with no stigmata of bleeding was found in the duodenal bulb. Impression: - Mild Schatzki ring. - LA Grade A reflux esophagitis. Biopsied. - Medium-sized hiatal hernia. - Gastritis. Biopsied. - Erythematous duodenopathy. Recommendation: - Discharge patient to home. - Resume previous diet. - Continue present medications. - Await pathology results. - Repeat upper endoscopy in 1 year for surveillance. - Return to GI office in 2 weeks. Procedure Code(s): --- Professional --- 50308, Esophagogastroduodenoscopy, flexible, transoral; with biopsy, single or multiple G0500, Moderate sedation services provided by the same physician or other qualified health youth care specialist performing a gastrointestinal endoscopic service that sedation supports, requiring the presence of an independent trained observer to assist in the monitoring of the patient's level of consciousness and physiological status; initial 15 minutes of intra-service time; patient age 5 years or older (additional time may be reported with 49992, as appropriate) CPT copyright 2017 [employer]. All rights reserved. The codes documented in this report are preliminary and upon senior supply chain analyst review may be revised to meet current compliance requirements. Girma Ulrich DO 11/28/2020 4:04:07 PM This report has been signed electronically. Number of Addenda: 1 Note Initiated On: 11/28/2020 3:41 PM Addendum Number: 1 Addendum Date: 10/11/2021 4:36:16 PM MAC was used instead of moderate sedation for this patient. Girma Ulrich DO 10/11/2021 4:36:24 PM This report has been signed electronically.
--- NOTE | 2020-11-28 16:05 | OP.CCLET_ITS ---
10/11/2021 Cuauhtemoc Viramontes Md Re : Upper GI endoscopy procedure for Alma Delia Arrieta Dear Wander This procedure was performed on Saturday, November 28, 2020. My impressions and recommendations are as follows: Impressions : - Mild Schatzki ring. - LA Grade A reflux esophagitis. Biopsied. - Medium-sized hiatal hernia. - Gastritis. Biopsied. - Erythematous duodenopathy. Recommendations : - Discharge patient to home. - Resume previous diet. - Continue present medications. - Await pathology results. - Repeat upper endoscopy in 1 year for surveillance. - Return to GI office in 2 weeks. My findings are described in the full procedure note, which is enclosed. If I can be of further assistance, please feel free to contact me at . Sincerely, Girma Ulrich, 11/28/2020 4:04:07 PM This report has been signed electronically.
[2020-11-28 16:06] VITALS: BP 117/63; BP 162/80; PULSE 65; RESP 16; TEMP 36.3; O2SAT 97
[2020-11-28 16:10] VITALS: BP 118/67; BP 162/80; PULSE 64; RESP 16; O2SAT 97
[2020-11-28 16:15] VITALS: BP 126/64; BP 162/80; PULSE 65; RESP 16; O2SAT 97
[2020-11-28 16:20] VITALS: BP 130/69; BP 162/80; PULSE 65; RESP 16; O2SAT 98
[2020-11-28 16:25] VITALS: BP 134/75; BP 162/80; PULSE 65; RESP 16; TEMP 36.2; O2SAT 98
== END 2020-11-28 16:59 | disposition home or self-care (01) ==
LOC: EN 13:01 → AC 13:02
PROVIDERS: PCP Family Medicine; Referring Provider Internal Medicine Gastroenterology; Visit Provider Internal Medicine Gastroenterology
PROC: 0DJ08ZZ Inspection of Upper Intestinal Tract, Via Natural or Artificial Opening Endoscopic (ICD-10-PCS; CPT 43235; principal; 2020-11-28 14:25)
DX: K22.2 Esophageal obstruction (principal); K21.00 Gastro-esophageal reflux disease with esophagitis, without bleeding; K29.50 Unspecified chronic gastritis without bleeding; K44.9 Diaphragmatic hernia without obstruction or gangrene; I45.19 Other right bundle-branch block; M19.90 Unspecified osteoarthritis, unspecified site; Z79.899 Other long term (current) drug therapy; Z87.891 Personal history of nicotine dependence; Z20.822 Contact with and (suspected) exposure to COVID-19
CPT/HCPCS: 43239; 87426; 88305; 88313; 88342; C9803; J7120; J2405